=== PATIENT | female | born 1985 | race Caucasian/White ===

== ENCOUNTER 2019-02-27 05:59 | Emergency (ER) | payer BC ==
[~2019-02-27] VITALS: Ht 175.3 cm; Wt 92.6 kg
[2019-02-27] MEDS ORDERED: LIRA0.6P SQ (06:22)
[2019-02-27] MEDS ORDERED: PANT40TA5 PO (06:22)
--- NOTE | 2019-02-27 06:58 | NUR ---
BEDSIDE REPORT TO ZEYAD TREVIZO.
--- NOTE | 2019-02-27 07:01 | NUR ---
Pt resting on gurney connected to NIBP, continous pulse ox, and manager banking. Both bedrails up for safety measures. Call light within reach. NADN. No needs expressed. Pt has unlabored respirations with even chest rise and fall.
[2019-02-27] MEDS ORDERED: DIAZEPAM 5 MG TABLET ONE (07:23)
[2019-02-27] MEDS ORDERED: MAALOX/HYOSCYAMINE/LIDOCAINE 45 ML BTL ONE (07:23)
[2019-02-27] MEDS ORDERED: MAALOX/HYOSCYAMINE/LIDOCAINE 45 ML BTL PO ONE (07:30)
[2019-02-27] MEDS ORDERED: DIAZEPAM 5 MG TABLET PO ONE (07:30)
[2019-02-27 07:56] LABS: ALANINE AMINOTRANSFERASE 32 U/L (12-78); ALBUMIN 3.6 g/dL (3.4-5.0); ANION GAP 6 mmol/L (5-15); CALCIUM 9.1 mg/dL (8.5-10.1); CHLORIDE 107 mmol/L (98-107); CREATININE 0.92 mg/dL (0.55-1.02)
[2019-02-27 08:01] LABS: ALKALINE PHOSPHATASE 63 U/L (45-117); BILIRUBIN,TOTAL 0.3 mg/dL (0.2-1.0); TOTAL PROTEIN 7.3 g/dL (6.4-8.2); TROPONIN I < 0.015 ng/mL (0.000-0.045)
--- NOTE | 2019-02-27 08:04 | NUR ---
Pt transported on [place] to ultrasound. UA sent to lab.
[2019-02-27 08:17] LABS: MICROSCOPIC NOT IND
[2019-02-27 08:18] LABS: MEAN CORPUSCULAR HEMOGLOBIN 26.7 pg (27.0-34.8); MEAN CORPUSCULAR HGB CONC 32.2 g/dL (32.4-35.8); MEAN CORPUSCULAR VOLUME 82.8 fL (80-100); MEAN PLATELET VOLUME 11.4 fL (7.4-10.4); PLATELET COUNT 189 x10^3/uL (130-400); RED BLOOD COUNT 4.95 x10^6/uL (3.82-5.3); RED CELL DISTRIBUTION WIDTH 13.9 % (9.6-15.2)
[2019-02-27 08:21] LABS: BASOPHILS # (AUTO) 0.06 x10^3/uL (0-0.1); BASOPHILS % (AUTO) 1 % (0-1); EOSINOPHILS # (AUTO) 0.14 x10^3/uL (0-0.4); EOSINOPHILS % (AUTO) 1 % (1-7); LYMPHOCYTES # (AUTO) 2.54 x10^3/uL (1-3.4); LYMPHOCYTES % (AUTO) 23 % (22-44); MD SCAN; MONOCYTES # (AUTO) 0.79 x10^3/uL (0.2-0.8); MONOCYTES % (AUTO) 7 % (2-9); NEUTROPHILS # (AUTO) 7.33 x10^3/uL (1.8-6.8); NEUTROPHILS % (AUTO) 68 % (42-75)
[2019-02-27 08:26] LABS: CULTURE INDICATED? YES
[2019-02-27] MEDS ORDERED: PROMETHAZINE 25 MG/ML, 1ML IM ONE (09:00)
[2019-02-27] MEDS ORDERED: PROMETHAZINE 25 MG/ML, 1ML ONE (09:17)
[2019-02-27 10:03] VITALS: BP 116/85
--- NOTE | 2019-02-27 10:04 | NUR ---
Hourly rounding on pt. Pt resting on gurney with both bedrails up for safety measures and call light within reach. NADN. Pt connected to NIBP, continous pulse ox, and awake overnight monitor. Pt states, "I don't have any chest pain right now, my headache is gone, but I am still dizzy. I am not really nauseated." Pt sitting on gurney using cell phone. Spouse at bedside. No needs expressed at this time.
--- NOTE | 2019-02-27 10:45 | NUR ---
Patient given discharge instructions and they have confirmed that they understand the instructions. Patient ambulatory with steady gait. Pt left with d/c paperwork, prescription, and all personal belongings.
== END 2019-02-27 10:54 | disposition home or self-care (01) ==
LOC: ED 10:45
DX: S16.1XXA Strain of muscle, fascia and tendon at neck level, initial encounter (principal); K21.9 Gastro-esophageal reflux disease without esophagitis; R07.89 Other chest pain; E11.9 Type 2 diabetes mellitus without complications; X58.XXXA Exposure to other specified factors, initial encounter; Y93.89 Activity, other specified; Y92.89 Other specified places as the place of occurrence of the external cause; Y99.8 Other external cause status
CPT/HCPCS: 36415; 71045; 76700; 80053; 81003; 83690; 84484; 84703; 85025; 87086; 93005; 96372; 99284; J2550